=== PATIENT | female | born 1955 | race Two or more races ===

== ENCOUNTER 2019-03-28 09:53 | Emergency (ER) | payer OTHER ==
[2019-03-28 09:59] VITALS: BP 137/72; PULSE 99; TEMP 97.7; BMI 30.2
[2019-03-28] MEDS ORDERED: CYCLOBENZAPRINE HCL 10 MG TABLET (FP) PO ONE (11:20)
[2019-03-28] MEDS ORDERED: ACETAMINOPHEN 500 MG TABLET (FP) PO ONE (11:20)
--- NOTE | 2019-03-28 11:34 | PDOC ---
History of Present Illness - General Chief Complaint: Pain, Acute Stated Complaint: NECK PAIN Time Seen by Provider: 03/28/19 11:07 - History of Present Illness Initial Comments: 03/28/19 11:31 64-year-old female with multiple comorbidities including hypertension presents for evaluation of atraumatic neck pain x1 day. She has problems moving her neck. No systemic symptoms. No radicular symptoms. Past History - Past Medical History Allergies/Adverse Reactions: Allergies Allergy/AdvReac Type Severity Reaction Status Date / Time No Known Allergies Allergy Verified 03/28/19 09:56 Home Medications: Ambulatory Orders Acetaminophen [Tylenol .Regular Strength -] 650 mg PO QID PRN #20 tablet Unobtainable Home Med List 0 dose .ROUTE UTDICT 03/30/14 Oseltamivir Phosphate [Tamiflu -] 75 mg PO BID #8 capsule 03/31/14 Acetaminophen [Tylenol] 650 mg PO Q6H #20 tablet 04/26/15 Oxycodone HCl/Acetaminophen [Percocet 5/325 -] 1 tab PO Q4H #10 tablet 04/26/15 Cyclobenzaprine HCl [Flexeril 10 mg] 10 mg PO HS PRN #10 tablet 03/28/19 COPD: No HTN: Yes - Surgical History Appendectomy: Yes - Immunization History TDAP Vaccination: No Immunization Up to Date: Yes - Psycho Social/Smoking Cessation Hx Smoking Status: No Smoking History: Never smoked Number of Cigarettes Smoked Daily: 0 Hx Alcohol Use: No Drug/Substance Use Hx: No Review of Systems - Review of Systems Constitutional: No: Fever Musculoskeletal: Yes: Neck Pain *Physical Exam - Vital Signs Last Vital Signs Temp Pulse Resp BP Pulse Ox 97.7 F 99 H 16 137/72 99 03/28/19 09:56 03/28/19 09:56 03/28/19 09:56 03/28/19 09:56 03/28/19 09:56 - Physical Exam 03/28/19 11:32 Cervical spine skin color and temperature are normal. There is full nonpainful range of motion. No palpable spasm.There is 5 out of 5 strength and thumb extension abduction and wrist flexion and extension elbow flexion and extension. 5 out of 5 strength in deltoid. Negative Sheron sign. Spurling maneuver is negative bilaterally. There are no gross sensory motor deficits. Neurovascularly intact. Medical Decision Making - Medical Decision Making 03/28/19 11:33 Cervical spine strain Flexeril follow-up with neurosurgery Discharge - Discharge Information Problems reviewed: Yes Clinical Impression/Diagnosis: Cervical strain, acute Condition: Stable Disposition: HOME - Admission No - Additional Discharge Information Prescriptions: Cyclobenzaprine HCl [Flexeril 10 mg] 10 mg PO HS PRN #10 tablet PRN Reason: Muscle Spasms - Follow up/Referral Referrals: Shane Gayle MD [Primary Care Provider] - Guzman Gao MD, FAANS [Staff Physician] - - Patient Discharge Instructions Additional Instructions: Cervical spine strain Flexeril follow-up with neurosurgery please take the muscle relaxer as directed. Return to the emergency room for worsening symptoms. Without fail please follow-up with neurosurgery in 2 to 3 days for worsening symptoms. - Post Discharge Activity
[2019-03-28] MEDS ORDERED: CYCLOBENZAPRINE HCL 10 MG TABLET (FP) ONE (11:43)
[2019-03-28] MEDS ORDERED: ACETAMINOPHEN 500 MG TABLET (FP) ONE (11:43)
== END 2019-03-28 11:59 | disposition home or self-care (01) ==
LOC: JERFT 09:53
DX: S16.1XXA Strain of muscle, fascia and tendon at neck level, initial encounter (principal); X58.XXXA Exposure to other specified factors, initial encounter; Y93.89 Activity, other specified; Y92.410 Unspecified street and highway as the place of occurrence of the external cause; I10 Essential (primary) hypertension
CPT/HCPCS: 99281-25